=== PATIENT | female | born 1955 | race Caucasian/White ===

== ENCOUNTER 2017-12-22 15:32 | Inpatient (IN) | payer MEDICARE, OTHER ==
[2017-12-22] MEDS ORDERED: morphine 4 MG/ML VIAL (15:55)
[2017-12-22 16:29] LABS: ADD MAN DIFF? NO
[2017-12-22 16:31] LABS: BASOPHILS % 0.4 % (0.0-2.0); EOSINOPHILS # 0.3 10^3/ul (0.0-0.5); EOSINOPHILS % 3.4 % (0.0-7.0); HEMATOCRIT 27.3 % (37.0-47.0); HEMOGLOBIN 8.4 g/dl (12.0-16.0); LYMPHOCYTES # 2.5 10^3/ul (0.8-2.9); LYMPHOCYTES % 25.3 % (15.0-51.0); MEAN CORPUSCULAR HGB CONC 30.8 g/dl (32.0-37.0); MEAN PLATELET VOLUME 10.2 fl (7.4-10.4); MONOCYTE # 0.8 10^3/ul (0.3-0.9); MONOCYTES % 7.9 % (0.0-11.0); NEUTROPHIL # 6.1 10^3/ul (1.6-7.5); NEUTROPHILS % 62.5 % (39.0-77.0); PLATELET COUNT 296 10^3/UL (140-415); RED CELL DISTRIBUTION WIDTH 15.6 % (11.5-14.5)
[2017-12-22 16:31] LABS: WHITE BLOOD COUNT 9.7 10^3/ul (4.8-10.8)
[2017-12-22 16:50] LABS: INR 1.27; PARTIAL THROMBOPLASTIN TIME 31.6 Sec (25.0-35.0); PROTIME 16.1 Sec (11.9-14.9); PT RATIO 1.3
[2017-12-22 16:51] LABS: ALANINE AMINOTRANSFERASE 21 IU/L (13-69); ALBUMIN 4.3 g/dl (3.3-4.9); ALBUMIN/GLOBULIN RATIO 1.26; ALKALINE PHOSPHATASE 166 IU/L (42-121); ANION GAP 27 (8-16); ASPARTATE AMINO TRANSFERASE 17 IU/L (15-46); BLOOD UREA NITROGEN 65 mg/dl (7-20); CALCIUM 10.3 mg/dl (8.4-10.2); CARBON DIOXIDE 24 mmol/L (21-31); CHLORIDE 97 mmol/L (97-110); CREATININE 10.17 mg/dl (0.44-1.00); GLUCOSE 198 mg/dl (70-220); SODIUM 142 mmol/L (135-144); TOTAL PROTEIN 7.7 g/dl (6.1-8.1)
[2017-12-22 16:55] LABS: POTASSIUM 5.6 mmol/L (3.5-5.1)
[2017-12-22 17:02] LABS: B-TYPE NATRIURETIC PEPTIDE 13700 PG/ML (0-125)
[2017-12-22 17:03] LABS: TROPONIN-I < 0.012 ng/ml (0.00-0.12)
[2017-12-22] MEDS: DEXTROSE 50% 50 ML SYRINGE IV (17:53)
[2017-12-22] MEDS: INSULIN REGULAR, HUMAN 100 UNIT/1 ML 3ML VIAL IVP (17:55)
[2017-12-22] MEDS: ALBUTEROL 0.5% (NEB) 2.5 MG/0.5 ML AMP INH (18:28)
[2017-12-22] MEDS ORDERED: ACETAMINOPHEN 325 MG TAB PO (18:30)
[2017-12-22] MEDS: LORAZEPAM 0.5 MG TAB PO (18:57)
[2017-12-22] MEDS ORDERED: GLUCOSE GEL 15 GRAM TUBE PO ×2 (19:00)
[2017-12-22] MEDS ORDERED: DEXTROSE 50% 50 ML SYRINGE IV ×2 (19:00)
[2017-12-22] MEDS ORDERED: NACL 0.9% 3 ML SYG IV (19:00)
[2017-12-22] MEDS ORDERED: GLUCAGON 1 MG INJ IM (19:00)
[2017-12-22] MEDS ORDERED: GLUCOSE GEL 15 GRAM TUBE BUCCAL (19:00)
[2017-12-22] MEDS: INSULIN GLARGINE [LANtus] 3 ML PEN SC (20:00)
[2017-12-22] MEDS: morphine 2 MG INJ IV (20:20)
[2017-12-22] MEDS: INSULIN ASPART [NOVOLOG] 3 ML PEN SC (20:21)
[2017-12-22] MEDS: NA POLYST SULFON 15 GM/60 ML BTL PO (20:21)
[2017-12-22] MEDS: HEPARIN 5,000 UNIT/0.5 ML VIAL SC (20:33)
[2017-12-22] MEDS: DIPHENHYDRAMINE 50 MG CAP PO (22:41)
[2017-12-22 22:49] LABS: CREATINE KINASE 93 IU/L (23-200)
[2017-12-22 23:02] LABS: CK INDEX 0.2
[2017-12-22 23:04] LABS: CK-MB < 0.22 ng/ml (0.0-2.4); TROPONIN-I < 0.012 ng/ml (0.00-0.12)
[2017-12-23] MEDS: HYDROCODONE/APAP (5/325) TAB PO ×3 (01:41→16:34)
[2017-12-23] MEDS: ONDANSETRON 4 MG INJ IV (04:30)
[2017-12-23] MEDS: LEVOTHYROXINE 50 MCG TAB PO (06:03)
[2017-12-23] MEDS: HEPARIN 5,000 UNIT/0.5 ML VIAL SC ×3 (06:09→22:13)
[2017-12-23 06:11] LABS: ADD MAN DIFF? NO
[2017-12-23 06:21] LABS: WHITE BLOOD COUNT 11.3 10^3/ul (4.8-10.8)
[2017-12-23 06:21] LABS: ABNORMAL IP MESSAGE 1; BASOPHILS % 0.3 % (0.0-2.0); EOSINOPHILS # 0.2 10^3/ul (0.0-0.5); EOSINOPHILS % 1.9 % (0.0-7.0); HEMATOCRIT 26.6 % (37.0-47.0); HEMOGLOBIN 8.6 g/dl (12.0-16.0); LYMPHOCYTES # 0.4 10^3/ul (0.8-2.9); LYMPHOCYTES % 3.7 % (15.0-51.0); MEAN CORPUSCULAR HEMOGLOBIN 28.2 pg (29.0-33.0); MEAN CORPUSCULAR HGB CONC 32.3 g/dl (32.0-37.0); MEAN CORPUSCULAR VOLUME 87.2 fl (82.0-101.0); MONOCYTE # 0.6 10^3/ul (0.3-0.9); MONOCYTES % 5.6 % (0.0-11.0); NEUTROPHIL # 9.9 10^3/ul (1.6-7.5); NEUTROPHILS % 88.1 % (39.0-77.0); PLATELET COUNT 279 10^3/UL (140-415); RED BLOOD COUNT 3.05 10^6/ul (4.20-5.40); RED CELL DISTRIBUTION WIDTH 15.6 % (11.5-14.5)
[2017-12-23 06:22] LABS: POSITIVE DIFF @See below
[2017-12-23 06:49] LABS: CREATINE KINASE 122 IU/L (23-200)
[2017-12-23 06:52] LABS: ALANINE AMINOTRANSFERASE 23 IU/L (13-69); ALBUMIN 4.9 g/dl (3.3-4.9); ALKALINE PHOSPHATASE 180 IU/L (42-121); ANION GAP 27 (8-16); ASPARTATE AMINO TRANSFERASE 25 IU/L (15-46); BLOOD UREA NITROGEN 70 mg/dl (7-20); CARBON DIOXIDE 25 mmol/L (21-31); CHLORIDE 96 mmol/L (97-110); CREATININE 10.78 mg/dl (0.44-1.00); GLUCOSE 98 mg/dl (70-220); POTASSIUM 5.4 mmol/L (3.5-5.1); SODIUM 143 mmol/L (135-144); TOTAL PROTEIN 8.4 g/dl (6.1-8.1)
[2017-12-23 06:54] LABS: CK INDEX 0.2
[2017-12-23 06:57] LABS: CK-MB < 0.22 ng/ml (0.0-2.4); TROPONIN-I < 0.012 ng/ml (0.00-0.12)
[2017-12-23 07:14] LABS: THYROID STIMULATING HORMONE 0.561 MIU/L (0.465-4.680)
[2017-12-23] MEDS: INSULIN ASPART [NOVOLOG] 3 ML PEN SC ×7 (07:55→20:44)
[2017-12-23] MEDS: NIFEdipine (XL) 90 MG TAB PO (08:21)
[2017-12-23] MEDS: LISINOPRIL 20 MG TAB PO (08:21)
[2017-12-23] MEDS: CALCIUM ACETATE 667 MG CAP PO ×3 (08:21→17:57)
[2017-12-23] MEDS: CINACALCET 30 MG TAB PO (08:21)
[2017-12-23] MEDS: SEVELAMER CARBONATE 0.8 GM PKT PO ×3 (08:22→17:57)
[2017-12-23] MEDS: LORAZEPAM 0.5 MG TAB PO ×2 (12:46→22:20)
[2017-12-23 14:12] LABS: HEPATITIS B SURFACE ANTIGEN NEGATIVE (NEGATIVE)
[2017-12-23] MEDS: INSULIN GLARGINE [LANtus] 3 ML PEN SC (20:58)
[2017-12-24] MEDS: HYDROCODONE/APAP (5/325) TAB PO ×3 (00:22→12:47)
[2017-12-24] MEDS: LEVOTHYROXINE 50 MCG TAB PO (05:52)
[2017-12-24] MEDS: HEPARIN 5,000 UNIT/0.5 ML VIAL SC ×2 (06:02→14:00)
[2017-12-24 07:32] LABS: ADD MAN DIFF? NO
[2017-12-24 07:34] LABS: BASOPHILS % 0.4 % (0.0-2.0); EOSINOPHILS # 0.3 10^3/ul (0.0-0.5); EOSINOPHILS % 4.8 % (0.0-7.0); HEMATOCRIT 23.3 % (37.0-47.0); HEMOGLOBIN 7.3 g/dl (12.0-16.0); LYMPHOCYTES % 18.8 % (15.0-51.0); MEAN CORPUSCULAR HEMOGLOBIN 27.8 pg (29.0-33.0); MEAN CORPUSCULAR HGB CONC 31.3 g/dl (32.0-37.0); MEAN CORPUSCULAR VOLUME 88.6 fl (82.0-101.0); MEAN PLATELET VOLUME 9.2 fl (7.4-10.4); MONOCYTE # 0.6 10^3/ul (0.3-0.9); MONOCYTES % 11.7 % (0.0-11.0); NEUTROPHIL # 3.4 10^3/ul (1.6-7.5); NEUTROPHILS % 63.9 % (39.0-77.0); PLATELET COUNT 209 10^3/UL (140-415); RED BLOOD COUNT 2.63 10^6/ul (4.20-5.40); RED CELL DISTRIBUTION WIDTH 15.8 % (11.5-14.5)
[2017-12-24 07:34] LABS: WHITE BLOOD COUNT 5.4 10^3/ul (4.8-10.8)
[2017-12-24 08:01] LABS: ANION GAP 19 (8-16); BLOOD UREA NITROGEN 49 mg/dl (7-20); CALCIUM 8.3 mg/dl (8.4-10.2); CARBON DIOXIDE 30 mmol/L (21-31); CHLORIDE 98 mmol/L (97-110); CREATININE 7.55 mg/dl (0.44-1.00); GLUCOSE 177 mg/dl (70-220); SODIUM 142 mmol/L (135-144)
[2017-12-24 08:03] LABS: CHOL/HDL RATIO 1.9 RATIO; HDL CHOLESTEROL 33 mg/dl (35-98); LDL CHOLESTEROL,CALCULATED 8 mg/dl; TRIGLYCERIDES 111 mg/dl (0-149)
[2017-12-24 08:03] LABS: CHOLESTEROL 63 mg/dl (100-200)
[2017-12-24] MEDS: NIFEdipine (XL) 90 MG TAB PO (08:17)
[2017-12-24] MEDS: CINACALCET 30 MG TAB PO (08:17)
[2017-12-24] MEDS: SEVELAMER CARBONATE 0.8 GM PKT PO ×3 (08:21→17:55)
[2017-12-24] MEDS: CALCIUM ACETATE 667 MG CAP PO ×3 (08:21→18:03)
[2017-12-24] MEDS: INSULIN ASPART [NOVOLOG] 3 ML PEN SC ×6 (08:31→17:36)
[2017-12-24] MEDS: hydrALAzine 20 MG INJ IV (13:25)
[2017-12-24] MEDS: EPOETIN 3000 UNITS/1 ML INJ (ESRD) SC (14:41)
[2017-12-25] MEDS ORDERED: EPOETIN 3000 UNITS/1 ML INJ (ESRD) SC (17:00)
== END 2017-12-24 19:30 | disposition home or self-care (01) | DRG 308 ==
LOC: TEL 12-23 23:25 → E/R 15:32 → TEL 18:25
PROC: 5A1D70Z Performance of Urinary Filtration, Intermittent, Less than 6 Hours Per Day (ICD-10-PCS; principal; 2017-12-23)
DX: R00.1 Bradycardia, unspecified (principal); N18.6 End stage renal disease; I13.2 Hypertensive heart and chronic kidney disease with heart failure and with stage 5 chronic kidney disease, or end stage renal disease; E11.22 Type 2 diabetes mellitus with diabetic chronic kidney disease; Z99.2 Dependence on renal dialysis; E87.5 Hyperkalemia; E11.42 Type 2 diabetes mellitus with diabetic polyneuropathy; F17.200 Nicotine dependence, unspecified, uncomplicated; F41.9 Anxiety disorder, unspecified; I50.9 Heart failure, unspecified; E03.9 Hypothyroidism, unspecified; D63.1 Anemia in chronic kidney disease
CPT/HCPCS: 36415; 71045; 80048; 80053; 80061; 82550; 82553; 82962; 83880; 84443; 84484; 85025; 85610; 85730; 87081; 87340; 90935; 93005; 93306; 94664; 96374; 96375; 99291-25